=== PATIENT | female | born 1940 | race Caucasian/White ===

== ENCOUNTER → 2018-01-08 | Outpatient (CLI) | payer MEDICARE, BC ==
[~2018-01-08] MED LIST: ASPIRIN E.C. 8181 MG PO; COZAAR100 MG PO; HCTZ 25MG25 MG PO; KLOR-CON 1010 MEQ PO; LIPITOR 10MG10 MG PO; METFORMIN HCL500 MG PO; OMEPRAZOLE20 M2 PO
== END ==
LOC: MC.RAD 09:28
DX: Z12.31 Encounter for screening mammogram for malignant neoplasm of breast (principal)

== ENCOUNTER → 2019-04-30 | Outpatient (CLI) | payer MEDICARE, BC ==
[~2019-04-30] MED LIST changes: +GLUCOPHAGE500 MG/TAB PO
== END ==
LOC: COL.RAD 12:58
DX: M25.461 Effusion, right knee (principal); M25.661 Stiffness of right knee, not elsewhere classified